=== PATIENT | female | born 1985 | race Caucasian/White ===

== ENCOUNTER 2017-01-08 18:55 | Emergency (ER) | payer BC ==
[2017-01-08] MEDS ORDERED: Sodium Chloride 0.9% 10 ML Syringe FLUSH PRN (20:22)
[2017-01-08] MEDS ORDERED: Sodium Chloride 0.9% 2.5 ML Syringe FLUSH PRN (20:22)
[2017-01-08] MEDS ORDERED: Sodium Chloride 0.9% 1,000 ML IV ONE (20:23)
== END 2017-01-08 19:30 | disposition left against medical advice (07) ==
LOC: MW.ED 18:55
DX: Z53.21 Procedure and treatment not carried out due to patient leaving prior to being seen by health care provider (principal)

== ENCOUNTER 2019-01-20 15:56 | Observation (INO) | payer OTHER ==
[2019-01-20] MEDS ORDERED: Sodium Chloride 0.9% 10 ML Syringe FLUSH PRN (16:26)
[2019-01-20] MEDS ORDERED: Sodium Chloride 0.9% 2.5 ML Syringe FLUSH PRN (16:26)
[2019-01-20] MEDS ORDERED: Sodium Chloride 0.9% 1,000 ML IV ONE ×2 (16:28→19:28)
[2019-01-20] MEDS ORDERED: Ondansetron 4 MG/2 ML SDV IVPUSH ONE (16:28)
--- NOTE | 2019-01-20 16:31 | EDM.PDOC ---
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 The patient was seen last evening at [facility] and had a CBC CMP and a urine test and was diagnosed with UTI and started on Cipro. She said she has taken one dose last evening and then today she has not been able to tolerate her meds or any oral fluids as she has been vomiting. She's had the chills and says that she has had a fever up to 101 this morning and she tried to take some Tylenol and vomited up so she has had no medications for her fevers and she is currently afebrile. She's had no diarrhea and also complains of other vague complaints such as tingling and numbness to her extremities, chest pain is vague and all over and general ill feeling including lightheadedness dizziness but no syncope. All the symptoms started this morning not when she was seen last night in the ED. The patient is concerned that her infection is progressing and that she needs further workup and she is also worried about a kidney stone. Patient has not had much to eat or drink today due to the vomiting. She is also taking [id number] Azo colored urine but says that there was blood in her urine last evening. Review of systems: As per history of present illness and below otherwise all systems reviewed and negative. Past medical history: As per history of present illness and as reviewed below otherwise noncontributory. Surgical history: As per history of present illness and as reviewed below otherwise noncontributory. Social history: No reported history of drug or alcohol abuse. Family history: As per history of present illness and as reviewed below otherwise noncontributory. Physical exam: General: Well-developed well-nourished female who is somewhat anxious in the ED. Vital signs are noted by me. HEENT: Atraumatic, normocephalic, negative for conjunctival pallor or scleral icterus, mucous membranes moist, throat clear, neck supple, nontender, trachea midline. Lungs: Clear to auscultation, breath sounds equal bilaterally, chest nontender. Heart: S1S2, regular rhythm and sightly tachycardic rate on my evaluation and no overt murmurs Abdomen: Soft, nondistended, mild lower abdominal tenderness in the suprapubic area and in the right lower quadrant but no CVA tenderness and no rebound or guarding, bowel sounds are hypoactive Negative for masses or hepatosplenomegaly. Negative for costovertebral tenderness. Pelvis: Stable nontender. Genitourinary: Deferred. Rectal: Deferred. Extremities: Atraumatic, negative for cords or calf pain. Neurovascular unremarkable. Neuro: Awake, alert, oriented. Cranial nerves II through XII unremarkable. Cerebellum unremarkable. Motor and sensory unremarkable throughout. Exam nonfocal. Diagnostics: CBC CMP lipase UA with reflex UCG lactic acid blood cultures EKG CT scan of the abdomen and pelvis Therapeutics: IV fluids Zofran Toradol All testing results were discussed with the patient including the incidental findings of biliary sludge and the left small renal stones. The patient is aware that there is no obstructing stones and that the changes in the right kidney are likely consistent with a pilonephritis. 1758: Case was discussed with our hospitalist Dr. Mcrae; well except the patient for observation admission and the patient is comfortable with admission as well. I offered outpatient management and she declines at this time because she does not feel like she is ready to go home. Impression: Pyelonephritis Definitive disposition and diagnosis as appropriate pending reevaluation and review of above. Bilateral Lower Back Pain Score (Numeric/FACES): 9 - Related Data Allergies Allergy/AdvReac Type Severity Reaction Status Date / Time codeine Allergy Hives Verified 01/20/19 16:20 tramadol Allergy Hives Verified 01/20/19 16:20 Home Meds: Home Meds Ciprofloxacin HCl [Cipro] 500 mg PO ASDIRECTED 01/20/19 [History] Hyoscyamine Sulfate 0.125 mg SL ASDIRECTED 01/20/19 [History] Omeprazole 20 mg PO DAILY 01/20/19 [History] Past Medical History Gastrointestinal History: Reports: GERD Genitourinary History: Reports: Pyelonephritis - Infectious Disease History Infectious Disease History: Reports: Chicken Pox - Past Surgical History Female Surgical History: Reports: Section Social & Family History - Family History Family Medical History: Noncontributory - Tobacco Use Smoking Status *Q: Current Every Day Smoker Years of Tobacco use: 14 Packs/Tins Daily: 0.3 - Recreational Drug Use Recreational Drug Use: No ED ROS GENERAL - Review of Systems Review Of Systems: Comprehensive ROS is negative, except as noted in HPI. ED EXAM, GENERAL - Physical Exam Exam: See Below (See dictation) Course - Vital Signs Last Recorded V/S: Last Vital Signs Temp 36.7 C 01/20/19 17:47 Pulse 98 01/20/19 17:47 Resp 18 01/20/19 17:47 BP 145/103 H 01/20/19 17:47 Pulse Ox 100 01/20/19 17:47 - Orders/Labs/Meds Orders: Active Orders 24 hr Category Date Time Status Patient Status [ADT] Stat ADT 01/20/19 17:59 Ordered EKG Documentation Completion [RC] STAT Care 01/20/19 16:26 Active CULTURE BLOOD [BC] Stat Lab 01/20/19 16:45 Received CULTURE BLOOD [BC] Stat Lab 01/20/19 16:57 Received CULTURE URINE [RM] Stat Lab 01/20/19 16:15 Received Sodium Chloride 0.9% [Normal Saline] 1,000 ml Med 01/20/19 17:45 Active IV ASDIRECTED Sodium Chloride 0.9% [Saline Flush] Med 01/20/19 16:26 Active 10 ml FLUSH ASDIRECTED PRN Sodium Chloride 0.9% [Saline Flush] Med 01/20/19 16:26 Active 2.5 ml FLUSH ASDIRECTED PRN cefTRIAXone [Rocephin in Dextrose,Iso-Osm 2 GM/50 ML] 2 Med 01/20/19 17:51 Active gm Premix Bag 1 bag IV ONETIME Blood Culture x2 Reflex Set [OM.PC] Stat Oth 01/20/19 16:31 Ordered Saline Lock Insert [OM.PC] Stat Oth 01/20/19 16:26 Ordered Medication Orders Sodium Chloride (Normal Saline) 1,000 mls @ 125 mls/hr IV ASDIRECTED CARMELA Last Admin: 01/20/19 17:46 Dose: 125 mls/hr Ceftriaxone Sodium/Dextrose 2 (gm/ Premix) 50 mls @ 100 mls/hr IV ONETIME ONE Stop: 01/20/19 18:20 Last Admin: 01/20/19 17:56 Dose: 100 mls/hr Sodium Chloride (Saline Flush) 10 ml FLUSH ASDIRECTED PRN PRN Reason: Keep Vein Open Sodium Chloride (Saline Flush) 2.5 ml FLUSH ASDIRECTED PRN PRN Reason: Keep Vein Open Labs: Laboratory Tests 01/20/19 01/20/19 01/20/19 Range/Units 16:15 16:15 16:45 WBC 17.18 H (4.0-11.0) K/uL RBC 4.38 (4.30-5.90) M/uL Hgb 14.8 (12.0-16.0) g/dL Hct 42.1 (36.0-46.0) % MCV 96.1 (80.0-98.0) fL MCH 33.8 H (27.0-32.0) pg MCHC 35.2 (31.0-37.0) g/dL RDW Std Deviation 41.5 (28.0-62.0) fl RDW Coeff of Joon 12 (11.0-15.0) % Plt Count 204 (150-400) K/uL MPV 9.70 (7.40-12.00) fL Add Manual Diff YES Neutrophils % (Manual) 78 (48.0-80.0) % Band Neutrophils % 4 % Lymphocytes % (Manual) 12 L (16.0-40.0) % Monocytes % (Manual) 5 (0.0-15.0) % Eosinophils % (Manual) 1 (0.0-7.0) % Absolute Seg Neuts 13.4 H (1.4-5.7) Band Neutrophils # 0.7 Lymphocytes # (Manual) 2.1 (0.6-2.4) Monocytes # (Manual) 0.9 H (0.0-0.8) Eosinophils # (Manual) 0.2 (0.0-0.7) Lactate (0.20-2.00) mmol/L Sodium (136-145) mmol/L Potassium (3.5-5.1) mmol/L Chloride (98-107) mmol/L Carbon Dioxide (21.0-32.0) mmol/L BUN (7.0-18.0) mg/dL Creatinine (0.6-1.0) mg/dL Est Cr Clr Drug Dosing mL/min Estimated GFR (MDRD) ml/min Glucose (74-106) mg/dL Calcium (8.5-10.1) mg/dL Total Bilirubin (0.2-1.0) mg/dL AST (15-37) IU/L ALT (14-63) IU/L Alkaline Phosphatase (46-116) U/L Total Protein (6.4-8.2) g/dL Albumin (3.4-5.0) g/dL Globulin (2.6-4.0) g/dL Albumin/Globulin Ratio (0.9-1.6) Lipase (73-393) U/L Urine Color ORANGE Urine Appearance SLT CLOUDY Urine pH 6.5 (5.0-8.0) Ur Specific [place] 1.020 (1.001-1.035) Urine Protein >=300 H (NEGATIVE) mg/dL Urine Glucose (UA) 250 H (NEGATIVE) mg/dL Urine Ketones 15 H (NEGATIVE) mg/dL Urine Occult Blood MODERATE H (NEGATIVE) Urine Nitrite POSITIVE H (NEGATIVE) Urine Bilirubin MODERATE H (NEGATIVE) Urine Ictotest POSITIVE Urine Urobilinogen >=8.0 H (<2.0) EU/dL Ur Leukocyte Esterase MODERATE H (NEGATIVE) Urine RBC 10-15 (0-2/HPF) Urine WBC 50-75 (0-5/HPF) Ur Epithelial Cells MODERATE (NONE-FEW) Urine Bacteria 1+ H (NEGATIVE) Urine HCG, Qual NEGATIVE (NEGATIVE) 01/20/19 01/20/19 Range/Units 16:45 16:45 WBC (4.0-11.0) K/uL RBC (4.30-5.90) M/uL Hgb (12.0-16.0) g/dL Hct (36.0-46.0) % MCV (80.0-98.0) fL MCH (27.0-32.0) pg MCHC (31.0-37.0) g/dL RDW Std Deviation (28.0-62.0) fl RDW Coeff of Joon (11.0-15.0) % Plt Count (150-400) K/uL MPV (7.40-12.00) fL Add Manual Diff Neutrophils % (Manual) (48.0-80.0) % Band Neutrophils % % Lymphocytes % (Manual) (16.0-40.0) % Monocytes % (Manual) (0.0-15.0) % Eosinophils % (Manual) (0.0-7.0) % Absolute Seg Neuts (1.4-5.7) Band Neutrophils # Lymphocytes # (Manual) (0.6-2.4) Monocytes # (Manual) (0.0-0.8) Eosinophils # (Manual) (0.0-0.7) Lactate 1.7 (0.20-2.00) mmol/L Sodium 139 (136-145) mmol/L Potassium 3.5 (3.5-5.1) mmol/L Chloride 99 (98-107) mmol/L Carbon Dioxide 25.8 (21.0-32.0) mmol/L BUN 8 (7.0-18.0) mg/dL Creatinine 1.1 H (0.6-1.0) mg/dL Est Cr Clr Drug Dosing 63.40 mL/min Estimated GFR (MDRD) 57.6 ml/min Glucose 121 H (74-106) mg/dL Calcium 8.2 L (8.5-10.1) mg/dL Total Bilirubin 0.6 (0.2-1.0) mg/dL AST 58 H (15-37) IU/L ALT 85 H (14-63) IU/L Alkaline Phosphatase 102 (46-116) U/L Total Protein 8.1 (6.4-8.2) g/dL Albumin 3.7 (3.4-5.0) g/dL Globulin 4.4 H (2.6-4.0) g/dL Albumin/Globulin Ratio 0.8 L (0.9-1.6) Lipase 97 (73-393) U/L Urine Color Urine Appearance Urine pH (5.0-8.0) Ur Specific [place] (1.001-1.035) Urine Protein (NEGATIVE) mg/dL Urine Glucose (UA) (NEGATIVE) mg/dL Urine Ketones (NEGATIVE) mg/dL Urine Occult Blood (NEGATIVE) Urine Nitrite (NEGATIVE) Urine Bilirubin (NEGATIVE) Urine Ictotest Urine Urobilinogen (<2.0) EU/dL Ur Leukocyte Esterase (NEGATIVE) Urine RBC (0-2/HPF) Urine WBC (0-5/HPF) Ur Epithelial Cells (NONE-FEW) Urine Bacteria (NEGATIVE) Urine HCG, Qual (NEGATIVE) Meds: Medications Generic Name Dose Route Start Last Admin Trade Name Freq PRN Reason Stop Dose Admin Sodium Chloride 1,000 mls @ 125 mls/hr 01/20/19 17:45 01/20/19 17:46 Normal Saline IV 125 mls/hr ASDIRECTED CARMELA Administration Ceftriaxone Sodium/Dextrose 2 50 mls @ 100 mls/hr 01/20/19 17:51 01/20/19 17: 56 gm/ Premix IV 01/20/19 18:20 100 mls/hr ONETIME ONE Administration Sodium Chloride 10 ml 01/20/19 16:26 Saline Flush FLUSH ASDIRECTED PRN Keep Vein Open Sodium Chloride 2.5 ml 01/20/19 16:26 Saline Flush FLUSH ASDIRECTED PRN Keep Vein Open Discontinued Medications Generic Name Dose Route Start Last Admin Trade Name Deangeloq PRN Reason Stop Dose Admin Sodium Chloride 1,000 mls @ 999 mls/hr 01/20/19 16:28 01/20/19 16:37 Normal Saline IV 01/20/19 17:28 999 mls/hr STAT ONE Administration Ketorolac Tromethamine 30 mg 01/20/19 16:47 01/20/19 17:07 Toradol IVPUSH 01/20/19 16:48 30 mg ONETIME ONE Administration Ondansetron HCl 4 mg 01/20/19 16:28 01/20/19 16:37 Zofran IVPUSH 01/20/19 16:29 4 mg ONETIME ONE Administration Departure - Departure Time of Disposition: 18:00 Disposition: Home, Self-Care 01 Condition: Good Clinical Impression: Pyelonephritis - Discharge Information Referrals: PCP,Not In Area [Primary Care Provider] - Forms: ED Department Discharge - My Orders Last 24 Hours: My Active Orders 01/20/19 16:15 CULTURE URINE [RM] Stat 01/20/19 16:26 EKG Documentation Completion [RC] STAT Sodium Chloride 0.9% [Saline Flush] 10 ml FLUSH ASDIRECTED PRN Sodium Chloride 0.9% [Saline Flush] 2.5 ml FLUSH ASDIRECTED PRN Saline Lock Insert [OM.PC] Stat 01/20/19 16:31 Blood Culture x2 Reflex Set [OM.PC] Stat 01/20/19 16:45 CULTURE BLOOD [BC] Stat 01/20/19 16:57 CULTURE BLOOD [BC] Stat 01/20/19 17:45 Sodium Chloride 0.9% [Normal Saline] 1,000 ml IV ASDIRECTED 01/20/19 17:51 cefTRIAXone [Rocephin in Dextrose,Iso-Osm 2 GM/50 ML] 2 gm Premix Bag 1 bag IV ONETIME 01/20/19 17:59 Patient Status [ADT] Stat - Assessment/Plan Last 24 Hours: My Active Orders 01/20/19 16:15 CULTURE URINE [RM] Stat 01/20/19 16:26 EKG Documentation Completion [RC] STAT Sodium Chloride 0.9% [Saline Flush] 10 ml FLUSH ASDIRECTED PRN Sodium Chloride 0.9% [Saline Flush] 2.5 ml FLUSH ASDIRECTED PRN Saline Lock Insert [OM.PC] Stat 01/20/19 16:31 Blood Culture x2 Reflex Set [OM.PC] Stat 01/20/19 16:45 CULTURE BLOOD [BC] Stat 01/20/19 16:57 CULTURE BLOOD [BC] Stat 01/20/19 17:45 Sodium Chloride 0.9% [Normal Saline] 1,000 ml IV ASDIRECTED 01/20/19 17:51 cefTRIAXone [Rocephin in Dextrose,Iso-Osm 2 GM/50 ML] 2 gm Premix Bag 1 bag IV ONETIME 01/20/19 17:59 Patient Status [ADT] Stat
[2019-01-20] MEDS ORDERED: Ketorolac 30 MG/ML SDV IVPUSH ONE (16:47)
--- NOTE | 2019-01-20 17:32 | CT ---
Exam: CT of the abdomen and pelvis without IV contrast. Clinical Information: Abdominal and flank pain. History of stones. Comparison: None. Findings: Diffuse fatty infiltration of the liver. Layering high-density debris in the gallbladder likely represents biliary sludge. Mild nonspecific edema about the lower pole of the right kidney and ureter. Small nonobstructing stones in the lower pole of the left kidney. Noncontrast CT of the liver, gallbladder, pancreas, spleen, adrenals, kidneys, bladder, and uterus is otherwise unremarkable. Normal caliber small bowel and colon. Minimal colonic diverticulosis. The appendix not visualized and may be surgically absent. No evidence of inflammatory changes in the right lower quadrant to suggest appendicitis. No lymphadenopathy in the abdomen or pelvis. Minimal atelectasis in the right middle lobe. The visualized lung bases are otherwise clear. The visualized osseous structures are unremarkable. Impression: 1. Mild nonspecific edema about the lower pole of the right kidney and ureter. Differential includes ascending urinary tract infection or recently passed stone. 2. Small nonobstructing left renal stones. 3. No evidence of an obstructing urinary tract stone. 4. Diffuse fatty infiltration of the liver. 5. Layering high-density debris in the gallbladder likely represents biliary sludge. 6. Minimal colonic diverticulosis without evidence of diverticulitis. Please note that all CT scans at this facility use dose modulation, iterative reconstruction, and/or weight-based dosing when appropriate to reduce radiation dose to as low as reasonably achievable. Dictated by Eldon Xavier MD @ Jan 20 2019 5:14PM (Electronically Signed)
[2019-01-20 17:44] LABS: CARBON DIOXIDE,CO2 25.8 mmol/L (21.0-32.0); POTASSIUM,K 3.5 mmol/L (3.5-5.1)
[2019-01-20] MEDS ORDERED: Sodium Chloride 0.9% 1,000 ML IV SCH (17:45)
[2019-01-20] MEDS ORDERED: cefTRIAXone 2 GM in Premix Bag 1 BAG IV ONE (17:51)
[2019-01-20] MEDS ORDERED: Ondansetron 4 MG Tab.DIS PO PRN (18:24)
[2019-01-20] MEDS ORDERED: Acetaminophen 325 MG Tab PO PRN (18:24)
[2019-01-20] MEDS ORDERED: Ondansetron 4 MG/2 ML SDV IVPUSH PRN (18:27)
[2019-01-20] MEDS ORDERED: Calcium Carbonate 500 MG Tab.Chew PO ONE (18:30)
--- NOTE | 2019-01-20 18:32 | PCM.HP.2 ---
<Vicente Mart M - Last Filed: 01/20/19 19:16> H&P History of Present Illness - General Date of Service: 01/20/19 Admit Problem/Dx: Admission Diagnosis/Problem Admission Diagnosis/Problem Pyelonephritis Source of Information: Patient History Limitations: Reports: No Limitations - History of Present Illness Initial Comments - Free Text/Narative: 34-year-old female presented to ER complaining of lower abdominal pain, right flank pain and vomiting for the past 1 day. She reports that she went to [facility] last night and was diagnosed with a UTI. She was given a script for ciprofloxacin which she picked up this morning. She took the first dose but ended up vomiting shortly after. She reports not being able to keep any of her food down all day today. Patient then came to [facility] for further evaluation. She also reports having fevers, chills, diarrhea and numbness in both of her hands. In the ER, CT abdomen showed mild edema at the lower pole of the right kidney and ureter. CT also showed small non-obstructing left renal stones. WBC count was 17. Lactate level normal. UA was leukocyte esterase and nitrate positive. Patient was given 1L IV NS bolus and given dose of IV ceftriaxone. Bilateral Lower Back Pain Score (Numeric/FACES): 9 - Related Data Allergies/Adverse Reactions: Allergies Allergy/AdvReac Type Severity Reaction Status Date / Time codeine Allergy Hives Verified 01/20/19 18:58 tramadol Allergy Hives Verified 01/20/19 18:58 Home Medications: Home Meds Hyoscyamine Sulfate 0.125 mg SL QID PRN MDD Gastric ulcer 01/20/19 [History] Omeprazole 20 mg PO DAILY 01/20/19 [History] Sulfamethoxazole/Trimethoprim [Bactrim Ds Tablet] 1 each PO BID 10 Days #20 tablet 01/21/19 [Rx] Past Medical History Gastrointestinal History: Reports: GERD Genitourinary History: Reports: Pyelonephritis - Infectious Disease History Infectious Disease History: Reports: Chicken Pox - Past Surgical History Female Surgical History: Reports: Section Social & Family History - Family History Family Medical History: Noncontributory - Tobacco Use Smoking Status *Q: Current Every Day Smoker Years of Tobacco use: 14 Packs/Tins Daily: 0.3 - Recreational Drug Use Recreational Drug Use: No H&P Review of Systems - Review of Systems: Review Of Systems: Comprehensive ROS is negative, except as noted in HPI. Exam - Exam Exam: See Below - Vital Signs Vital Signs: Last Vital Signs Temp 98.0 F 01/20/19 17:47 Pulse 98 01/20/19 17:47 Resp 18 01/20/19 17:47 BP 145/103 H 01/20/19 17:47 Pulse Ox 100 01/20/19 17:47 Weight: 81.647 kg - Exam General: Alert, Oriented, Cooperative, Other (NAD) HEENT: Conjunctiva Clear, EOMI, Hearing Intact Neck: Supple, Trachea Midline Lungs: Clear to Auscultation, Normal Respiratory Effort Cardiovascular: Regular Rate, Regular Rhythm GI/Abdominal Exam: Normal Bowel Sounds, Soft, Non-Tender, No Distention, Other ( No CVA tenderness bilaterally. No flank tenderness bilaterally.) Extremities: Normal Inspection, No Pedal Edema Peripheral Pulses: 2+: Posterior Tibial (L), Posterior Tibial (R) Skin: Warm, Dry, Intact Neurological: Cranial Nerves Intact, Strength Equal Bilateral, Normal Tone, Sensation Intact Neuro Extensive - Mental Status: Alert, Oriented x3, Normal Mood/Affect - Patient Data Lab Results Last 24 hrs: Laboratory Results - last 24 hr 01/20/19 01/20/19 01/20/19 Range/Units 16:15 16:15 16:45 WBC 17.18 H (4.0-11.0) K/uL RBC 4.38 (4.30-5.90) M/uL Hgb 14.8 (12.0-16.0) g/dL Hct 42.1 (36.0-46.0) % MCV 96.1 (80.0-98.0) fL MCH 33.8 H (27.0-32.0) pg MCHC 35.2 (31.0-37.0) g/dL RDW Std Deviation 41.5 (28.0-62.0) fl RDW Coeff of Joon 12 (11.0-15.0) % Plt Count 204 (150-400) K/uL MPV 9.70 (7.40-12.00) fL Add Manual Diff YES Neutrophils % (Manual) 78 (48.0-80.0) % Band Neutrophils % 4 % Lymphocytes % (Manual) 12 L (16.0-40.0) % Monocytes % (Manual) 5 (0.0-15.0) % Eosinophils % (Manual) 1 (0.0-7.0) % Absolute Seg Neuts 13.4 H (1.4-5.7) Band Neutrophils # 0.7 Lymphocytes # (Manual) 2.1 (0.6-2.4) Monocytes # (Manual) 0.9 H (0.0-0.8) Eosinophils # (Manual) 0.2 (0.0-0.7) Lactate (0.20-2.00) mmol/L Sodium (136-145) mmol/L Potassium (3.5-5.1) mmol/L Chloride (98-107) mmol/L Carbon Dioxide (21.0-32.0) mmol/L BUN (7.0-18.0) mg/dL Creatinine (0.6-1.0) mg/dL Est Cr Clr Drug Dosing mL/min Estimated GFR (MDRD) ml/min Glucose (74-106) mg/dL Calcium (8.5-10.1) mg/dL Total Bilirubin (0.2-1.0) mg/dL AST (15-37) IU/L ALT (14-63) IU/L Alkaline Phosphatase (46-116) U/L Total Protein (6.4-8.2) g/dL Albumin (3.4-5.0) g/dL Globulin (2.6-4.0) g/dL Albumin/Globulin Ratio (0.9-1.6) Lipase (73-393) U/L Urine Color ORANGE Urine Appearance SLT CLOUDY Urine pH 6.5 (5.0-8.0) Ur Specific Milton 1.020 (1.001-1.035) Urine Protein >=300 H (NEGATIVE) mg/dL Urine Glucose (UA) 250 H (NEGATIVE) mg/dL Urine Ketones 15 H (NEGATIVE) mg/dL Urine Occult Blood MODERATE H (NEGATIVE) Urine Nitrite POSITIVE H (NEGATIVE) Urine Bilirubin MODERATE H (NEGATIVE) Urine Ictotest POSITIVE Urine Urobilinogen >=8.0 H (<2.0) EU/dL Ur Leukocyte Esterase MODERATE H (NEGATIVE) Urine RBC 10-15 (0-2/HPF) Urine WBC 50-75 (0-5/HPF) Ur Epithelial Cells MODERATE (NONE-FEW) Urine Bacteria 1+ H (NEGATIVE) Urine HCG, Qual NEGATIVE (NEGATIVE) 01/20/19 01/20/19 Range/Units 16:45 16:45 WBC (4.0-11.0) K/uL RBC (4.30-5.90) M/uL Hgb (12.0-16.0) g/dL Hct (36.0-46.0) % MCV (80.0-98.0) fL MCH (27.0-32.0) pg MCHC (31.0-37.0) g/dL RDW Std Deviation (28.0-62.0) fl RDW Coeff of Joon (11.0-15.0) % Plt Count (150-400) K/uL MPV (7.40-12.00) fL Add Manual Diff Neutrophils % (Manual) (48.0-80.0) % Band Neutrophils % % Lymphocytes % (Manual) (16.0-40.0) % Monocytes % (Manual) (0.0-15.0) % Eosinophils % (Manual) (0.0-7.0) % Absolute Seg Neuts (1.4-5.7) Band Neutrophils # Lymphocytes # (Manual) (0.6-2.4) Monocytes # (Manual) (0.0-0.8) Eosinophils # (Manual) (0.0-0.7) Lactate 1.7 (0.20-2.00) mmol/L Sodium 139 (136-145) mmol/L Potassium 3.5 (3.5-5.1) mmol/L Chloride 99 (98-107) mmol/L Carbon Dioxide 25.8 (21.0-32.0) mmol/L BUN 8 (7.0-18.0) mg/dL Creatinine 1.1 H (0.6-1.0) mg/dL Est Cr Clr Drug Dosing 63.40 mL/min Estimated GFR (MDRD) 57.6 ml/min Glucose 121 H (74-106) mg/dL Calcium 8.2 L (8.5-10.1) mg/dL Total Bilirubin 0.6 (0.2-1.0) mg/dL AST 58 H (15-37) IU/L ALT 85 H (14-63) IU/L Alkaline Phosphatase 102 (46-116) U/L Total Protein 8.1 (6.4-8.2) g/dL Albumin 3.7 (3.4-5.0) g/dL Globulin 4.4 H (2.6-4.0) g/dL Albumin/Globulin Ratio 0.8 L (0.9-1.6) Lipase 97 (73-393) U/L Urine Color Urine Appearance Urine pH (5.0-8.0) Ur Specific Milton (1.001-1.035) Urine Protein (NEGATIVE) mg/dL Urine Glucose (UA) (NEGATIVE) mg/dL Urine Ketones (NEGATIVE) mg/dL Urine Occult Blood (NEGATIVE) Urine Nitrite (NEGATIVE) Urine Bilirubin (NEGATIVE) Urine Ictotest Urine Urobilinogen (<2.0) EU/dL Ur Leukocyte Esterase (NEGATIVE) Urine RBC (0-2/HPF) Urine WBC (0-5/HPF) Ur Epithelial Cells (NONE-FEW) Urine Bacteria (NEGATIVE) Urine HCG, Qual (NEGATIVE) Result Diagrams: 01/20/19 16:45 01/20/19 16:45 Problem List Initiated/Reviewed/Updated: Yes Orders Last 24hrs: Active Orders 24 hr Category Date Time Status Patient Status [ADT] Stat ADT 01/20/19 17:59 Active Oxygen Therapy [RC] PRN Care 01/20/19 18:24 Ordered Up ad Jeannette [RC] ASDIRECTED Care 01/20/19 18:24 Ordered VTE/DVT Education [RC] PER UNIT ROUTINE Care 01/20/19 18:24 Ordered Vital Signs [RC] Q4H Care 01/20/19 18:24 Ordered Regular Diet [DIET] Diet 01/20/19 Dinner Ordered CBC WITH AUTO DIFF [HEME] AM Lab 01/21/19 05:11 Ordered CMP [COMPREHENSIVE METABOLIC PN,CMP] [CHEM] AM Lab 01/21/19 05:11 Ordered CULTURE BLOOD [BC] Stat Lab 01/20/19 16:45 Received CULTURE BLOOD [BC] Stat Lab 01/20/19 16:57 Received CULTURE URINE [RM] Stat Lab 01/20/19 16:15 Received MAGNESIUM [CHEM] Routine Lab 01/20/19 18:24 Ordered PHOSPHORUS [CHEM] Routine Lab 01/20/19 18:24 Ordered TSH [CHEM] Routine Lab 01/20/19 18:24 Ordered Acetaminophen [Tylenol] Med 01/20/19 18:24 Ordered 650 mg PO Q4H PRN Calcium Carbonate [Tums] Med 01/20/19 18:30 Once 1,000 mg PO ONETIME ONE Heparin Sodium Med 01/20/19 18:30 Ordered 5,000 units SUBCUT Q8H Ondansetron [Zofran ODT] Med 01/20/19 18:24 Ordered 4 mg PO Q4H PRN Ondansetron [Zofran] Med 01/20/19 18:27 Ordered 4 mg IVPUSH Q6H PRN Sodium Chloride 0.9% [Normal Saline] 1,000 ml Med 01/20/19 18:30 Ordered IV STAT Sodium Chloride 0.9% [Saline Flush] Med 01/20/19 16:26 Active 10 ml FLUSH ASDIRECTED PRN Sodium Chloride 0.9% [Saline Flush] Med 01/20/19 16:26 Active 2.5 ml FLUSH ASDIRECTED PRN cefTRIAXone [Rocephin in Dextrose,Iso-Osm 1 GM/50 ML] 1 Med 01/20/19 18:30 Ordered gm Premix Bag 1 bag IV Q24H Blood Culture x2 Reflex Set [OM.PC] Stat Oth 01/20/19 16:31 Ordered Saline Lock Insert [OM.PC] Stat Oth 01/20/19 16:26 Ordered Resuscitation Status Routine Resus Stat 01/20/19 18:24 Ordered Medication Orders Acetaminophen (Tylenol) 650 mg PO Q4H PRN PRN Reason: Pain (Mild 1-3)/fever Heparin Sodium (Porcine) (Heparin Sodium) 5,000 units SUBCUT Q8H CARMELA Sodium Chloride (Normal Saline) 1,000 mls @ 100 mls/hr IV STAT CARMELA Ceftriaxone Sodium/Dextrose 1 (gm/ Premix) 50 mls @ 100 mls/hr IV Q24H CARMELA Ondansetron HCl (Zofran Odt) 4 mg PO Q4H PRN PRN Reason: nausea, able to take PO Ondansetron HCl (Zofran) 4 mg IVPUSH Q6H PRN PRN Reason: Nausea/Vomiting Sodium Chloride (Saline Flush) 10 ml FLUSH ASDIRECTED PRN PRN Reason: Keep Vein Open Sodium Chloride (Saline Flush) 2.5 ml FLUSH ASDIRECTED PRN PRN Reason: Keep Vein Open Assessment/Plan Comment:: Assessment: 1. Acute pyelonephritis. 2. Nausea and vomiting. 3. SASHA. 4. Hypocalcemia, mild. 5. Hypomagnesemia. 6. Hypophosphatemia. 7. Past medical history of acid reflux and hiatal hernia. Plan: 1. For acute pyelonephritis, will continue IV ceftriaxone, IV NS 100 cc/hr and zofran prn nausea. Blood cultures pending. Urine culture pending. Lactate level normal. 2. For SASHA, will continue IV NS. Will monitor. 3. For hypocalcemia, will replete with 1 g calcium carbonate PO. 4. For hypomagnesemia, will replete with 2 g IV magnesium sulfate. 5. For hypophosphatemia, will replete with PO and recheck with AM labs. 6. For PMH will continue home medications. <Hiram Mcrae - Last Filed: 01/24/19 12:51> H&P History of Present Illness - General Admit Problem/Dx: Admission Diagnosis/Problem Admission Diagnosis/Problem Pyelonephritis Exam - Vital Signs Vital Signs: Last Vital Signs Temp 36.8 C 01/21/19 12:00 Pulse 101 H 01/21/19 12:00 Resp 15 01/21/19 12:00 BP 142/84 H 01/21/19 12:00 Pulse Ox 94 L 01/21/19 12:00 - Patient Data Result Diagrams: 01/21/19 05:47 01/21/19 05:47 Toby Results Last 24 hrs: Microbiology 01/20/19 16:57 Aerobic Blood Culture - Preliminary Blood - Venous - Lab Draw NO GROWTH AFTER 3 DAYS Anaerobic Blood Culture - Preliminary NO GROWTH AFTER 3 DAYS 01/20/19 16:45 Aerobic Blood Culture - Preliminary Blood - Venous NO GROWTH AFTER 3 DAYS Anaerobic Blood Culture - Preliminary NO GROWTH AFTER 3 DAYS Assessment/Plan Comment:: I performed a history and physical exam of the patient and discussed management with resident. I have reviewed the residents note and agree with documented findings and plan unless otherwise specified in my note.
[2019-01-20] MEDS ORDERED: Hyoscyamine 0.125 MG Tab.SL SL SCH (19:00)
[2019-01-20] MEDS: Heparin Sodium 5,000 Units/ML Vial SUBCUT SCH (19:03)
[2019-01-20] MEDS: Sodium Chloride 0.9% 1,000 ML IV SCH (19:12)
[2019-01-20] MEDS ORDERED: Magnesium Sulfate/Water 2 GM in Premix Bag 1 BAG IV ONE (19:15)
[2019-01-20] MEDS ORDERED: Hyoscyamine 0.125 MG Tab.SL SL PRN (19:20)
[2019-01-20 19:47] LABS: HEMOGLOBIN A1C 5.5 % (4.5-6.2)
[2019-01-20] MEDS: Ketorolac 15 MG/ML SDV IVPUSH PRN (20:31)
[2019-01-21] MEDS: Phosphorus #1 250 MG Tab PO SCH ×3 (00:37→11:47)
[2019-01-21] MEDS: Heparin Sodium 5,000 Units/ML Vial SUBCUT SCH ×2 (01:26→09:50)
[2019-01-21] MEDS: Sodium Chloride 0.9% 1,000 ML IV SCH (05:42)
[2019-01-21] MEDS: Ketorolac 15 MG/ML SDV IVPUSH PRN (05:48)
[2019-01-21 06:32] LABS: BLOOD UREA NITROGEN,BUN 4 mg/dL (7.0-18.0); CARBON DIOXIDE,CO2 25.5 mmol/L (21.0-32.0); CHLORIDE,CL 104 mmol/L (98-107); GLUCOSE RANDOM 91 mg/dL (74-106); POTASSIUM,K 3.6 mmol/L (3.5-5.1); SODIUM,NA 140 mmol/L (136-145)
[2019-01-21] MEDS ORDERED: Omeprazole 20 MG Cap.CR PO SCH (07:30)
[2019-01-21] MEDS ORDERED: Calcium Carbonate 500 MG Tab.Chew PO ONE (07:56)
[2019-01-21] MEDS ORDERED: Magnesium Sulfate/Water 2 GM in Premix Bag 1 BAG IV ONE (07:56)
[2019-01-21] MEDS ORDERED: cefTRIAXone 1 GM in Premix Bag 1 BAG IV SCH ×2 (11:00→18:30)
--- NOTE | 2019-01-21 12:05 | PCM.DCSUM1 ---
<Vicente Mart - Last Filed: 01/21/19 13:46> Discharge Summary - Hospital Course Free Text/Narrative:: 34-year-old female admitted for acute pyelonephritis. She has a PMH of dermoid cyst. On admission, patient had elevated WBC count of 17. CT abdomen/pelvis showed mild edema at lower pole of right kidney and ureter as well as non- obstructing renal stones in left kidney. Patient was started on IV fluids and zofran for nausea. Treated with IV ceftriaxone for 2 doses. Blood cultures and urine cultures pending. Magnesium, calcium and phosphorus were repleted. Patient remained afebrile and hemodynamically stable throughout her acute hospitalization. She reported feeling significantly better on day of discharge. Discharged on course of bactrim DS BID for 10 days. Advised to follow-up with her PCP in 1 week to have magnesium, calcium and phosphorus levels rechecked. - Discharge Data Discharge Date: 01/21/19 Discharge Disposition: Home, Self-Care 01 Condition: Stable - Referral to Home Health Primary Care Physician: PCP Not In Area - Patient Instructions Diet: Regular Diet as Tolerated Activity: As Tolerated Notify Provider of: Fever, Increased Pain, Swelling and Redness, Drainage, Nausea and/or Vomiting - Discharge Plan *PRESCRIPTION DRUG MONITORING PROGRAM REVIEWED*: Not Applicable *COPY OF PRESCRIPTION DRUG MONITORING REPORT IN PATIENT ETHAN: Not Applicable Prescriptions/Med Rec: Sulfamethoxazole/Trimethoprim [Bactrim Ds Tablet] 1 each PO BID 10 Days #20 tablet Home Medications: Home Meds Hyoscyamine Sulfate 0.125 mg SL QID PRN MDD Gastric ulcer 01/20/19 [History] Omeprazole 20 mg PO DAILY 01/20/19 [History] Sulfamethoxazole/Trimethoprim [Bactrim Ds Tablet] 1 each PO BID 10 Days #20 tablet 01/21/19 [Rx] Patient Handouts: Pyelonephritis, Adult, [id number], Sulfamethoxazole; Trimethoprim, [id number] tablets Referrals: Katie Carranza NP [Ordering Only Provider] - 01/29/19 10:00 am - Discharge Summary/Plan Comment DC Time >30 min.: No - Patient Data Vitals - Most Recent: Last Vital Signs Temp 98.4 F 01/21/19 08:00 Pulse 88 01/21/19 08:00 Resp 18 01/21/19 08:00 BP 133/87 01/21/19 08:00 Pulse Ox 97 01/21/19 08:00 Weight - Most Recent: 81.647 kg I&O - Last 24 hours: Intake & Output 01/20/19 01/21/19 01/21/19 22:59 06:59 14:59 Intake Total 2100 50 Output Total 2500 Balance -400 50 Lab Results - Last 24 hrs: Laboratory Results - last 24 hr 01/20/19 01/20/19 01/20/19 Range/Units 16:15 16:15 16:45 WBC 17.18 H (4.0-11.0) K/uL RBC 4.38 (4.30-5.90) M/uL Hgb 14.8 (12.0-16.0) g/dL Hct 42.1 (36.0-46.0) % MCV 96.1 (80.0-98.0) fL MCH 33.8 H (27.0-32.0) pg MCHC 35.2 (31.0-37.0) g/dL RDW Std Deviation 41.5 (28.0-62.0) fl RDW Coeff of Joon 12 (11.0-15.0) % Plt Count 204 (150-400) K/uL MPV 9.70 (7.40-12.00) fL Add Manual Diff YES Neutrophils % (Manual) 78 (48.0-80.0) % Band Neutrophils % 4 % Lymphocytes % (Manual) 12 L (16.0-40.0) % Monocytes % (Manual) 5 (0.0-15.0) % Eosinophils % (Manual) 1 (0.0-7.0) % Nucleated RBC % /100WBC Absolute Seg Neuts 13.4 H (1.4-5.7) Band Neutrophils # 0.7 Lymphocytes # (Manual) 2.1 (0.6-2.4) Monocytes # (Manual) 0.9 H (0.0-0.8) Eosinophils # (Manual) 0.2 (0.0-0.7) Nucleated RBCs # K/uL Lactate (0.20-2.00) mmol/L Sodium (136-145) mmol/L Potassium (3.5-5.1) mmol/L Chloride (98-107) mmol/L Carbon Dioxide (21.0-32.0) mmol/L BUN (7.0-18.0) mg/dL Creatinine (0.6-1.0) mg/dL Est Cr Clr Drug Dosing mL/min Estimated GFR (MDRD) ml/min Glucose (74-106) mg/dL Hemoglobin A1c (4.5-6.2) % Calcium (8.5-10.1) mg/dL Phosphorus (2.6-4.7) mg/dL Magnesium (1.8-2.4) mg/dL Total Bilirubin (0.2-1.0) mg/dL AST (15-37) IU/L ALT (14-63) IU/L Alkaline Phosphatase (46-116) U/L Total Protein (6.4-8.2) g/dL Albumin (3.4-5.0) g/dL Globulin (2.6-4.0) g/dL Albumin/Globulin Ratio (0.9-1.6) Lipase (73-393) U/L TSH 3rd Generation (0.36-3.74) uIU/mL Urine Color ORANGE Urine Appearance SLT CLOUDY Urine pH 6.5 (5.0-8.0) Ur Specific [place] 1.020 (1.001-1.035) Urine Protein >=300 H (NEGATIVE) mg/dL Urine Glucose (UA) 250 H (NEGATIVE) mg/dL Urine Ketones 15 H (NEGATIVE) mg/dL Urine Occult Blood MODERATE H (NEGATIVE) Urine Nitrite POSITIVE H (NEGATIVE) Urine Bilirubin MODERATE H (NEGATIVE) Urine Ictotest POSITIVE Urine Urobilinogen >=8.0 H (<2.0) EU/dL Ur Leukocyte Esterase MODERATE H (NEGATIVE) Urine RBC 10-15 (0-2/HPF) Urine WBC 50-75 (0-5/HPF) Ur Epithelial Cells MODERATE (NONE-FEW) Urine Bacteria 1+ H (NEGATIVE) Urine HCG, Qual NEGATIVE (NEGATIVE) 01/20/19 01/20/19 01/20/19 Range/Units 16:45 16:45 16:45 WBC (4.0-11.0) K/uL RBC (4.30-5.90) M/uL Hgb (12.0-16.0) g/dL Hct (36.0-46.0) % MCV (80.0-98.0) fL MCH (27.0-32.0) pg MCHC (31.0-37.0) g/dL RDW Std Deviation (28.0-62.0) fl RDW Coeff of Joon (11.0-15.0) % Plt Count (150-400) K/uL MPV (7.40-12.00) fL Add Manual Diff Neutrophils % (Manual) (48.0-80.0) % Band Neutrophils % % Lymphocytes % (Manual) (16.0-40.0) % Monocytes % (Manual) (0.0-15.0) % Eosinophils % (Manual) (0.0-7.0) % Nucleated RBC % /100WBC Absolute Seg Neuts (1.4-5.7) Band Neutrophils # Lymphocytes # (Manual) (0.6-2.4) Monocytes # (Manual) (0.0-0.8) Eosinophils # (Manual) (0.0-0.7) Nucleated RBCs # K/uL Lactate 1.7 (0.20-2.00) mmol/L Sodium 139 (136-145) mmol/L Potassium 3.5 (3.5-5.1) mmol/L Chloride 99 (98-107) mmol/L Carbon Dioxide 25.8 (21.0-32.0) mmol/L BUN 8 (7.0-18.0) mg/dL Creatinine 1.1 H (0.6-1.0) mg/dL Est Cr Clr Drug Dosing 63.40 mL/min Estimated GFR (MDRD) 57.6 ml/min Glucose 121 H (74-106) mg/dL Hemoglobin A1c (4.5-6.2) % Calcium 8.2 L (8.5-10.1) mg/dL Phosphorus 2.4 L (2.6-4.7) mg/dL Magnesium 0.8 L (1.8-2.4) mg/dL Total Bilirubin 0.6 (0.2-1.0) mg/dL AST 58 H (15-37) IU/L ALT 85 H (14-63) IU/L Alkaline Phosphatase 102 (46-116) U/L Total Protein 8.1 (6.4-8.2) g/dL Albumin 3.7 (3.4-5.0) g/dL Globulin 4.4 H (2.6-4.0) g/dL Albumin/Globulin Ratio 0.8 L (0.9-1.6) Lipase 97 (73-393) U/L TSH 3rd Generation 3.81 H (0.36-3.74) uIU/mL Urine Color Urine Appearance Urine pH (5.0-8.0) Ur Specific [place] (1.001-1.035) Urine Protein (NEGATIVE) mg/dL Urine Glucose (UA) (NEGATIVE) mg/dL Urine Ketones (NEGATIVE) mg/dL Urine Occult Blood (NEGATIVE) Urine Nitrite (NEGATIVE) Urine Bilirubin (NEGATIVE) Urine Ictotest Urine Urobilinogen (<2.0) EU/dL Ur Leukocyte Esterase (NEGATIVE) Urine RBC (0-2/HPF) Urine WBC (0-5/HPF) Ur Epithelial Cells (NONE-FEW) Urine Bacteria (NEGATIVE) Urine HCG, Qual (NEGATIVE) 01/20/19 01/21/19 01/21/19 Range/Units 16:45 05:47 05:47 WBC 12.08 H (4.0-11.0) K/uL RBC 3.86 L (4.30-5.90) M/uL Hgb 12.8 (12.0-16.0) g/dL Hct 38.4 (36.0-46.0) % MCV 99.5 H (80.0-98.0) fL MCH 33.2 H (27.0-32.0) pg MCHC 33.3 (31.0-37.0) g/dL RDW Std Deviation 45.8 (28.0-62.0) fl RDW Coeff of Joon 13 (11.0-15.0) % Plt Count 165 (150-400) K/uL MPV 9.90 (7.40-12.00) fL Add Manual Diff YES Neutrophils % (Manual) 85 H (48.0-80.0) % Band Neutrophils % % Lymphocytes % (Manual) 10 L (16.0-40.0) % Monocytes % (Manual) 5 (0.0-15.0) % Eosinophils % (Manual) (0.0-7.0) % Nucleated RBC % 0.0 /100WBC Absolute Seg Neuts 10.3 H (1.4-5.7) Band Neutrophils # Lymphocytes # (Manual) 1.2 (0.6-2.4) Monocytes # (Manual) 0.6 (0.0-0.8) Eosinophils # (Manual) (0.0-0.7) Nucleated RBCs # 0 K/uL Lactate (0.20-2.00) mmol/L Sodium 140 (136-145) mmol/L Potassium 3.6 (3.5-5.1) mmol/L Chloride 104 (98-107) mmol/L Carbon Dioxide 25.5 (21.0-32.0) mmol/L BUN 4 L (7.0-18.0) mg/dL Creatinine 0.9 (0.6-1.0) mg/dL Est Cr Clr Drug Dosing 77.49 mL/min Estimated GFR (MDRD) > 60.0 ml/min Glucose 91 (74-106) mg/dL Hemoglobin A1c 5.5 (4.5-6.2) % Calcium 7.3 L (8.5-10.1) mg/dL Phosphorus 2.9 (2.6-4.7) mg/dL Magnesium 1.6 L (1.8-2.4) mg/dL Total Bilirubin 0.3 (0.2-1.0) mg/dL AST 29 (15-37) IU/L ALT 60 (14-63) IU/L Alkaline Phosphatase 81 (46-116) U/L Total Protein 6.6 (6.4-8.2) g/dL Albumin 2.9 L (3.4-5.0) g/dL Globulin 3.7 (2.6-4.0) g/dL Albumin/Globulin Ratio 0.8 L (0.9-1.6) Lipase (73-393) U/L TSH 3rd Generation (0.36-3.74) uIU/mL Urine Color Urine Appearance Urine pH (5.0-8.0) Ur Specific [place] (1.001-1.035) Urine Protein (NEGATIVE) mg/dL Urine Glucose (UA) (NEGATIVE) mg/dL Urine Ketones (NEGATIVE) mg/dL Urine Occult Blood (NEGATIVE) Urine Nitrite (NEGATIVE) Urine Bilirubin (NEGATIVE) Urine Ictotest Urine Urobilinogen (<2.0) EU/dL Ur Leukocyte Esterase (NEGATIVE) Urine RBC (0-2/HPF) Urine WBC (0-5/HPF) Ur Epithelial Cells (NONE-FEW) Urine Bacteria (NEGATIVE) Urine HCG, Qual (NEGATIVE) Med Orders - Current: Current Medications Acetaminophen (Tylenol) 650 mg PO Q4H PRN PRN Reason: Pain (Mild 1-3)/fever Heparin Sodium (Porcine) (Heparin Sodium) 5,000 units SUBCUT Q8H [facility] Last Admin: 01/21/19 09:50 Dose: Not Given Hyoscyamine (Hyomax-Sl) 0.125 mg SL QID PRN PRN Reason: Other Ketorolac Tromethamine (Toradol) 15 mg IVPUSH Q6H PRN PRN Reason: Pain Last Admin: 01/21/19 05:48 Dose: 15 mg Omeprazole (Omeprazole) 20 mg PO ACBREAKFAST [facility] Last Admin: 01/21/19 07:56 Dose: Not Given Ondansetron HCl (Zofran Odt) 4 mg PO Q4H PRN PRN Reason: nausea, able to take PO Ondansetron HCl (Zofran) 4 mg IVPUSH Q6H PRN PRN Reason: Nausea/Vomiting Sodium Chloride (Saline Flush) 10 ml FLUSH ASDIRECTED PRN PRN Reason: Keep Vein Open Sodium Chloride (Saline Flush) 2.5 ml FLUSH ASDIRECTED PRN PRN Reason: Keep Vein Open Sodium Phosphate (Neutra-Phos) 250 mg PO QID [facility] Stop: 01/21/19 18:01 Last Admin: 01/21/19 11:47 Dose: 250 mg Discontinued Medications Calcium Carbonate/Glycine (Tums) 1,000 mg PO ONETIME ONE Stop: 01/20/19 18:31 Last Admin: 01/20/19 19:03 Dose: 1,000 mg Calcium Carbonate/Glycine (Tums) 1,000 mg PO ONETIME ONE Stop: 01/21/19 07:57 Last Admin: 01/21/19 08:22 Dose: 1,000 mg Hyoscyamine (Hyomax-Sl) 0.125 mg SL ASDIRECTED [facility] Sodium Chloride (Normal Saline) 1,000 mls @ 999 mls/hr IV STAT ONE Stop: 01/20/19 17:28 Last Admin: 01/20/19 16:37 Dose: 999 mls/hr Sodium Chloride (Normal Saline) 1,000 mls @ 125 mls/hr IV ASDIRECTED [facility] Last Admin: 01/20/19 17:46 Dose: 125 mls/hr Ceftriaxone Sodium/Dextrose 2 (gm/ Premix) 50 mls @ 100 mls/hr IV ONETIME ONE Stop: 01/20/19 18:20 Last Admin: 01/20/19 17:56 Dose: 100 mls/hr Sodium Chloride (Normal Saline) 1,000 mls @ 100 mls/hr IV STAT [facility] Last Admin: 01/21/19 05:42 Dose: 100 mls/hr Ceftriaxone Sodium/Dextrose 1 (gm/ Premix) 50 mls @ 100 mls/hr IV Q24H [facility] Magnesium Sulfate 2 gm/ Premix 50 mls @ 25 mls/hr IV ONETIME ONE Stop: 01/20/19 21:14 Last Admin: 01/20/19 19:26 Dose: 25 mls/hr Sodium Chloride (Normal Saline) 1,000 mls @ 999 mls/hr IV STAT ONE Stop: 01/20/19 20:28 Last Admin: 01/20/19 20:31 Dose: 999 mls/hr Magnesium Sulfate 2 gm/ Premix 50 mls @ 25 mls/hr IV ONETIME ONE Stop: 01/21/19 09:55 Last Admin: 01/21/19 08:23 Dose: 25 mls/hr Ceftriaxone Sodium/Dextrose 1 (gm/ Premix) 50 mls @ 100 mls/hr IV 01/21/19@ 1100 [facility] Stop: 01/21/19 11:29 Ketorolac Tromethamine (Toradol) 30 mg IVPUSH ONETIME ONE Stop: 01/20/19 16:48 Last Admin: 01/20/19 17:07 Dose: 30 mg Ondansetron HCl (Zofran) 4 mg IVPUSH ONETIME ONE Stop: 01/20/19 16:29 Last Admin: 01/20/19 16:37 Dose: 4 mg <Andres Ferrer - Last Filed: 01/23/19 18:42> Discharge Summary - Referral to Home Health Primary Care Physician: PCP Not In Area - Patient Data Vitals - Most Recent: Last Vital Signs Temp 36.8 C 01/21/19 12:00 Pulse 101 H 01/21/19 12:00 Resp 15 01/21/19 12:00 BP 142/84 H 01/21/19 12:00 Pulse Ox 94 L 12/04/19 12:00 MEGHNA Results - Last 24 hrs: Microbiology 01/20/19 16:57 Aerobic Blood Culture - Preliminary Blood - Venous - Lab Draw NO GROWTH AFTER 3 DAYS Anaerobic Blood Culture - Preliminary NO GROWTH AFTER 3 DAYS 01/20/19 16:45 Aerobic Blood Culture - Preliminary Blood - Venous NO GROWTH AFTER 3 DAYS Anaerobic Blood Culture - Preliminary NO GROWTH AFTER 3 DAYS Med Orders - Current: Current Medications Discontinued Medications Acetaminophen (Tylenol) 650 mg PO Q4H PRN PRN Reason: Pain (Mild 1-3)/fever Calcium Carbonate/Glycine (Tums) 1,000 mg PO ONETIME ONE Stop: 01/20/19 18:31 Last Admin: 01/20/19 19:03 Dose: 1,000 mg Calcium Carbonate/Glycine (Tums) 1,000 mg PO ONETIME ONE Stop: 01/21/19 07:57 Last Admin: 01/21/19 08:22 Dose: 1,000 mg Heparin Sodium (Porcine) (Heparin Sodium) 5,000 units SUBCUT Q8H [facility] Last Admin: 01/21/19 09:50 Dose: Not Given Hyoscyamine (Hyomax-Sl) 0.125 mg SL ASDIRECTED [facility] Hyoscyamine (Hyomax-Sl) 0.125 mg SL QID PRN PRN Reason: Other Sodium Chloride (Normal Saline) 1,000 mls @ 999 mls/hr IV STAT ONE Stop: 01/20/19 17:28 Last Admin: 01/20/19 16:37 Dose: 999 mls/hr Sodium Chloride (Normal Saline) 1,000 mls @ 125 mls/hr IV ASDIRECTED [facility] Last Admin: 01/20/19 17:46 Dose: 125 mls/hr Ceftriaxone Sodium/Dextrose 2 (gm/ Premix) 50 mls @ 100 mls/hr IV ONETIME ONE Stop: 01/20/19 18:20 Last Admin: 01/20/19 17:56 Dose: 100 mls/hr Sodium Chloride (Normal Saline) 1,000 mls @ 100 mls/hr IV STAT [facility] Last Admin: 01/21/19 05:42 Dose: 100 mls/hr Ceftriaxone Sodium/Dextrose 1 (gm/ Premix) 50 mls @ 100 mls/hr IV Q24H [facility] Magnesium Sulfate 2 gm/ Premix 50 mls @ 25 mls/hr IV ONETIME ONE Stop: 01/20/19 21:14 Last Admin: 01/20/19 19:26 Dose: 25 mls/hr Sodium Chloride (Normal Saline) 1,000 mls @ 999 mls/hr IV STAT ONE Stop: 01/20/19 20:28 Last Admin: 01/20/19 20:31 Dose: 999 mls/hr Magnesium Sulfate 2 gm/ Premix 50 mls @ 25 mls/hr IV ONETIME ONE Stop: 01/21/19 09:55 Last Admin: 01/21/19 08:23 Dose: 25 mls/hr Ceftriaxone Sodium/Dextrose 1 (gm/ Premix) 50 mls @ 100 mls/hr IV 01/21/19@ 1100 [facility] Stop: 01/21/19 11:29 Last Admin: 01/21/19 12:17 Dose: 100 mls/hr Ketorolac Tromethamine (Toradol) 30 mg IVPUSH ONETIME ONE Stop: 01/20/19 16:48 Last Admin: 01/20/19 17:07 Dose: 30 mg Ketorolac Tromethamine (Toradol) 15 mg IVPUSH Q6H PRN PRN Reason: Pain Last Admin: 01/21/19 05:48 Dose: 15 mg Omeprazole (Omeprazole) 20 mg PO ACBREAKFAST [facility] Last Admin: 01/21/19 07:56 Dose: Not Given Ondansetron HCl (Zofran) 4 mg IVPUSH ONETIME ONE Stop: 01/20/19 16:29 Last Admin: 01/20/19 16:37 Dose: 4 mg Ondansetron HCl (Zofran Odt) 4 mg PO Q4H PRN PRN Reason: nausea, able to take PO Ondansetron HCl (Zofran) 4 mg IVPUSH Q6H PRN PRN Reason: Nausea/Vomiting Sodium Chloride (Saline Flush) 10 ml FLUSH ASDIRECTED PRN PRN Reason: Keep Vein Open Sodium Chloride (Saline Flush) 2.5 ml FLUSH ASDIRECTED PRN PRN Reason: Keep Vein Open Sodium Phosphate (Neutra-Phos) 250 mg PO QID [facility] Stop: 01/21/19 18:01 Last Admin: 01/21/19 11:47 Dose: 250 mg - Free Text/Narrative Note: I have seen and examined the patient with the resident. I have discussed findings and treatment plan with the resident. I agree with the assessment and plan outlined in the following note.
== END 2019-01-21 16:00 | disposition home or self-care (01) ==
LOC: MW.ED 15:56 → MW.MS 17:59
PROVIDERS: ADMIT Student in an Organized Health Care Education/Training Program; ATTEND Student in an Organized Health Care Education/Training Program
DX: N10 Acute pyelonephritis (principal); R11.2 Nausea with vomiting, unspecified; N17.9 Acute kidney failure, unspecified; E83.51 Hypocalcemia; E83.42 Hypomagnesemia; E83.39 Other disorders of phosphorus metabolism; K21.9 Gastro-esophageal reflux disease without esophagitis; Z88.5 Allergy status to narcotic agent; F17.210 Nicotine dependence, cigarettes, uncomplicated
CPT/HCPCS: 36415; 74176; 80053; 81001; 81025; 83036; 83605; 83690; 83735; 84100; 84443; 85025; 87040; 87086; 93005; 96361; 96365; 96372; 96375; 96376; 99285; A9270; G0378; J0696; J1644; J1885; J2405; J3475; J7030; 99284

== ENCOUNTER 2019-11-02 14:03 | Emergency (ER) | payer BC ==
--- NOTE | 2019-11-02 14:57 | EDM.PDOC ---
ED HPI GENERAL MEDICAL PROBLEM - General Chief Complaint: Chest Pain Stated Complaint: CHEST PAIN Time Seen by Provider: 11/02/19 14:05 Source of Information: Reports: Patient History Limitations: Reports: No Limitations - History of Present Illness INITIAL COMMENTS - FREE TEXT/NARRATIVE: 34F no PMHx presents for left anterior chest pain "like squeezing/tightness" radiating to L neck, L shoulder x1-week worsening. Mild associated SOB. No LE pain/swelling/redness. No PE/DVT history. chest Pain Score (Numeric/FACES): 8 - Related Data Allergies Allergy/AdvReac Type Severity Reaction Status Date / Time codeine Allergy Hives Verified 11/02/19 14:12 tramadol Allergy Hives Verified 11/02/19 14:12 Home Meds: Home Meds Hyoscyamine Sulfate 0.125 mg SL QID PRN MDD Gastric ulcer 01/20/19 [History] Omeprazole 20 mg PO DAILY 01/20/19 [History] Past Medical History Gastrointestinal History: Reports: GERD, Hiatal Hernia Genitourinary History: Reports: Pyelonephritis - Infectious Disease History Infectious Disease History: Reports: Chicken Pox - Past Surgical History Female Surgical History: Reports: Section Social & Family History - Family History Family Medical History: Noncontributory - Tobacco Use Smoking Status *Q: Current Every Day Smoker Years of Tobacco use: 12 Packs/Tins Daily: 0.2 - Caffeine Use Caffeine Use: Reports: Soda - Recreational Drug Use Recreational Drug Use: No ED ROS GENERAL - Review of Systems Review Of Systems: Comprehensive ROS is negative, except as noted in HPI. ED EXAM, GENERAL - Physical Exam Exam: See Below Exam Limited By: No Limitations General Appearance: Alert, WD/WN, No Apparent Distress Nose: Normal Inspection Throat/Mouth: Normal Voice, No Airway Compromise Head: Atraumatic, Normocephalic Neck: Normal Inspection Respiratory/Chest: No Respiratory Distress, Lungs Clear, Normal Breath Sounds, No Accessory Muscle Use, Chest Non-Tender Cardiovascular: Normal Peripheral Pulses, Regular Rate, Rhythm, No Edema Extremities: Normal Inspection Neurological: Alert Psychiatric: Normal Affect, Normal Mood Skin Exam: Warm, Dry, Intact, Normal Color, No Rash EKG INTERPRETATION EKG Date: 11/02/19 Time: 14:15 Rhythm: NSR [place]: Normal P-Wave: Present QRS: Normal ST-T: Normal QT: Normal Comparison: NA - No Prior EKG Course - Vital Signs Last Recorded V/S: Last Vital Signs Temp 97 F 11/02/19 14:08 Pulse 94 11/02/19 14:08 Resp 18 11/02/19 14:08 BP 184/117 H 11/02/19 14:08 Pulse Ox 100 11/02/19 14:08 - Orders/Labs/Meds Orders: Active Orders 24 hr Category Date Time Status Cardiac Monitoring [RC] . DIRECTED Care 11/02/19 14:30 Active Pulse Oximetry [RC] ASDIRECTED Care 11/02/19 14:30 Active Chest 1V Frontal [CR] Stat Exams 11/02/19 14:32 Taken Labs: Laboratory Tests 11/02/19 11/02/19 11/02/19 Range/Units 14:11 14:11 14:11 WBC 8.07 (4.0-11.0) K/uL RBC 4.66 (4.30-5.90) M/uL Hgb 15.7 (12.0-16.0) g/dL Hct 46.2 H (36.0-46.0) % MCV 99.1 H (80.0-98.0) fL MCH 33.7 H (27.0-32.0) pg MCHC 34.0 (31.0-37.0) g/dL RDW Std Deviation 45.8 (28.0-62.0) fl RDW Coeff of Joon 13 (11.0-15.0) % Plt Count 293 (150-400) K/uL MPV 9.20 (7.40-12.00) fL Neut % (Auto) 63.0 (48.0-80.0) % Lymph % (Auto) 25.3 (16.0-40.0) % [place] % (Auto) 10.3 (0.0-15.0) % Eos % (Auto) 1.2 (0.0-7.0) % Baso % (Auto) 0.2 (0.0-1.5) % Neut # (Auto) 5.1 (1.4-5.7) K/uL Lymph # (Auto) 2.0 (0.6-2.4) K/uL [place] # (Auto) 0.8 (0.0-0.8) K/uL Eos # (Auto) 0.1 (0.0-0.7) K/uL Baso # (Auto) 0.0 (0.0-0.1) K/uL Nucleated RBC % 0.0 /100WBC Nucleated RBCs # 0 K/uL D-Dimer, Quantitative (0.0-0.50) mg/L FEU Sodium 139 (136-145) mmol/L Potassium 3.4 L (3.5-5.1) mmol/L Chloride 101 (98-107) mmol/L Carbon Dioxide 25.7 (21.0-32.0) mmol/L BUN 14 (7.0-18.0) mg/dL Creatinine 0.9 (0.6-1.0) mg/dL Est Cr Clr Drug Dosing 77.49 mL/min Estimated GFR (MDRD) > 60.0 ml/min Glucose 109 H (74-106) mg/dL Calcium 9.3 (8.5-10.1) mg/dL Total Bilirubin 0.4 (0.2-1.0) mg/dL AST 27 (15-37) IU/L ALT 44 (14-63) IU/L Alkaline Phosphatase 87 (46-116) U/L Troponin I (0.000-0.056) ng/mL B-Natriuretic Peptide 88 (<100) PG/ML Total Protein 8.3 H (6.4-8.2) g/dL Albumin 4.5 (3.4-5.0) g/dL Globulin 3.8 (2.6-4.0) g/dL Albumin/Globulin Ratio 1.2 (0.9-1.6) Lipase 126 (73-393) U/L 11/02/19 11/02/19 Range/Units 14:11 14:11 WBC (4.0-11.0) K/uL RBC (4.30-5.90) M/uL Hgb (12.0-16.0) g/dL Hct (36.0-46.0) % MCV (80.0-98.0) fL MCH (27.0-32.0) pg MCHC (31.0-37.0) g/dL RDW Std Deviation (28.0-62.0) fl RDW Coeff of Joon (11.0-15.0) % Plt Count (150-400) K/uL MPV (7.40-12.00) fL Neut % (Auto) (48.0-80.0) % Lymph % (Auto) (16.0-40.0) % [place] % (Auto) (0.0-15.0) % Eos % (Auto) (0.0-7.0) % Baso % (Auto) (0.0-1.5) % Neut # (Auto) (1.4-5.7) K/uL Lymph # (Auto) (0.6-2.4) K/uL [place] # (Auto) (0.0-0.8) K/uL Eos # (Auto) (0.0-0.7) K/uL Baso # (Auto) (0.0-0.1) K/uL Nucleated RBC % /100WBC Nucleated RBCs # K/uL D-Dimer, Quantitative 0.38 (0.0-0.50) mg/L FEU Sodium (136-145) mmol/L Potassium (3.5-5.1) mmol/L Chloride (98-107) mmol/L Carbon Dioxide (21.0-32.0) mmol/L BUN (7.0-18.0) mg/dL Creatinine (0.6-1.0) mg/dL Est Cr Clr Drug Dosing mL/min Estimated GFR (MDRD) ml/min Glucose (74-106) mg/dL Calcium (8.5-10.1) mg/dL Total Bilirubin (0.2-1.0) mg/dL AST (15-37) IU/L ALT (14-63) IU/L Alkaline Phosphatase (46-116) U/L Troponin I < 0.050 (0.000-0.056) ng/mL B-Natriuretic Peptide (<100) PG/ML Total Protein (6.4-8.2) g/dL Albumin (3.4-5.0) g/dL Globulin (2.6-4.0) g/dL Albumin/Globulin Ratio (0.9-1.6) Lipase (73-393) U/L Meds: Medications Discontinued Medications Generic Name Dose Route Start Last Admin Trade Name Freq PRN Reason Stop Dose Admin Acetaminophen 1,000 mg 11/02/19 16:16 Tylenol Extra Strength PO 11/02/19 16:17 ONETIME ONE Ibuprofen 600 mg 11/02/19 16:16 Motrin PO 11/02/19 16:17 ONETIME ONE Lorazepam 0.5 mg 11/02/19 16:05 11/02/19 16:13 Ativan PO 11/02/19 16:06 0.5 mg ONETIME ONE Administration - Re-Assessments/Exams Free Text/Narrative Re-Assessment/Exam: 11/02/19 16:08 Labs unremarkable. Will trial ativan 0.5mg; patient notes feeling very anxious and states this may be related to her pain. WIll f/u, anticipate d/c with PMD f/u for further testing as indicated Departure - Departure Time of Disposition: 16:07 Disposition: Home, Self-Care 01 Condition: Good Clinical Impression: Chest pain Qualifiers: Chest pain type: other chest pain Qualified Code(s): R07.89 - Other chest pain; R07.8 - Other chest pain Instructions: Nonspecific Chest Pain, Adult, [id number] Referrals: PCP,None [Primary Care Provider] - Forms: ED Department Discharge Additional Instructions: The following information is given to patients seen in the emergency department who are being discharged to home. This information is to outline your options for follow-up care. We provide all patients seen in our emergency department with a follow-up referral. The need for follow-up, as well as the timing and circumstances, are variable depending upon the specifics of your emergency department visit. If you don't have a primary care physician on staff, we will provide you with a referral. We always advise you to contact your personal physician following an emergency department visit to inform them of the circumstance of the visit and for follow-up with them and/or the need for any referrals to a consulting specialist. The emergency department will also refer you to a specialist when appropriate. This referral assures that you have the opportunity for follow-up care with a specialist. All of these measure are taken in an effort to provide you with optimal care, which includes your follow-up. Under all circumstances we always encourage you to contact your private physician who remains a resource for coordinating your care. When calling for follow-up care, please make the office aware that this follow-up is from your recent emergency room visit. If for any reason you are refused follow-up, please contact the [facility] Emergency Department at and asked to speak to the emergency department charge nurse. Please follow up with your primary care physician. If you do not have a primary care physician, see below: [facility] [address] [place] [id number] [facility] [address] [place] [address] Sepsis Event Note (ED) - Evaluation Sepsis Screening Result: No Definite Risk - Focused Exam Vital Signs: Vital Signs Temp Pulse Resp BP Pulse Ox 11/02/19 14:08 97 F 94 18 184/117 H 100 - My Orders Last 24 Hours: My Active Orders 11/02/19 14:30 Cardiac Monitoring [RC] . DIRECTED Pulse Oximetry [RC] ASDIRECTED 11/02/19 14:32 Chest 1V Frontal [CR] Stat - Assessment/Plan Last 24 Hours: My Active Orders 11/02/19 14:30 Cardiac Monitoring [RC] . DIRECTED Pulse Oximetry [RC] ASDIRECTED 11/02/19 14:32 Chest 1V Frontal [CR] Stat
[2019-11-02 15:04] LABS: BLOOD UREA NITROGEN,BUN 14 mg/dL (7.0-18.0); CARBON DIOXIDE,CO2 25.7 mmol/L (21.0-32.0); CHLORIDE,CL 101 mmol/L (98-107); GLUCOSE RANDOM 109 mg/dL (74-106); LIPASE 126 U/L (73-393); POTASSIUM,K 3.4 mmol/L (3.5-5.1); SODIUM,NA 139 mmol/L (136-145)
[2019-11-02] MEDS ORDERED: LORazepam 0.5 MG Tab PO ONE (16:05)
[2019-11-02] MEDS ORDERED: Acetaminophen 500 MG Tab PO ONE (16:16)
[2019-11-02] MEDS ORDERED: Ibuprofen 600 MG Tab PO ONE (16:16)
--- NOTE | 2019-11-03 11:12 | CR ---
Chest: Portable view of the chest was obtained. Comparison: No previous chest imaging. Heart size and mediastinum are normal. Lungs are clear with no acute parenchymal change. Possible small calcified granuloma within the left upper chest. Bony structures are grossly intact. Impression: 1. Nothing acute is seen on portable chest x-ray. Diagnostic code #2 This report was dictated in MDT
== END 2019-11-02 16:32 | disposition home or self-care (01) ==
LOC: MW.ED 14:03
DX: R07.89 Other chest pain (principal); R06.02 Shortness of breath; K21.9 Gastro-esophageal reflux disease without esophagitis; F17.210 Nicotine dependence, cigarettes, uncomplicated; Z88.5 Allergy status to narcotic agent; Z88.6 Allergy status to analgesic agent; Z79.899 Other long term (current) drug therapy
CPT/HCPCS: 36415; 71045; 80053; 83690; 83880; 84484; 85025; 85379; 93005; 99285; A9270; 99284